=== PATIENT | female | born 1950 | race Caucasian/White ===

== ENCOUNTER 2024-09-18 11:51 | Outpatient (CLI) | payer MEDICARE, BC, SELFPAY ==
--- NOTE | 2024-09-18 13:14 | W.ANESCHARGE ---
Anesthesia Charges Start Date/Time Anesthesia Start Date: 09/18/24 Anesthesia Start Time: 12:35 Stop Date/Time Anesthesia Stop Date: 09/18/24 Anesthesia Stop Time: 13:13 Summary Extremes of Age - Over 70 or under 1: INS[employer]ATION [employer]
== END 2024-09-18 11:52 | disposition home or self-care (01) ==
LOC: OP CLINIC 11:53
PROVIDERS: PCP Surgery; Visit Provider Internal Medicine Gastroenterology
DX: Z12.11 Encounter for screening for malignant neoplasm of colon (principal); D12.2 Benign neoplasm of ascending colon; K51.00 Ulcerative (chronic) pancolitis without complications
CPT/HCPCS: 00811; 45380; 88305; 99100; J2704